=== PATIENT | male | born 1955 | race Caucasian/White ===

== ENCOUNTER 2018-09-11 14:25 | Inpatient (IN) | payer OTHER ==
[~2018-09-11] VITALS: Ht 167.6 cm; Wt 56.3 kg
[2018-09-11] MEDS ORDERED: SODIUM CHLORIDE 0.9% 1000ML 1,000 ML IV STA (14:43)
[2018-09-11] MEDS ORDERED: ACETAMINOPHEN 325 MG TAB PO ONE (15:15)
[2018-09-11 15:29] LABS: BASOPHILS # (AUTO) 0.1 (0.0-0.1); BASOPHILS % 0.7 % (0.0-1.0); EOSINOPHILS % 0.2 % (0.0-6.0); HEMATOCRIT 38.1 % (38.2-49.6); HEMOGLOBIN 13.4 g/dL (14.0-18.0); LYMPHOCYTES # (AUTO) 0.9 (1.0-3.2); LYMPHOCYTES % 10.8 % (18.0-39.1); MEAN CORPUSCULAR HGB CONC 35.2 g/dL (31-35); MEAN CORPUSCULAR VOLUME 96.7 fL (81-99); NEUTROPHILS # (AUTO) 6.6 (2.1-6.9); PLATELET COUNT 220 x10e3/uL (140-360); RED BLOOD COUNT 3.94 x10e6/uL (4.3-5.7); RED CELL DISTRIBUTION WIDTH 13.3 % (11.7-14.4)
[2018-09-11 15:36] LABS: INR 0.85; PROTHROMBIN TIME 12.1 seconds (11.9-14.5)
[2018-09-11 15:37] LABS: PARTIAL THROMBOPLASTIN TIME 30.9 seconds (23.8-35.5)
[2018-09-11 15:44] LABS: ALANINE AMINOTRANSFERASE 16 IU/L (0-55); ALBUMIN 4.2 g/dL (3.5-5.0); ALKALINE PHOSPHATASE 113 IU/L (40-150); BLOOD UREA NITROGEN 7 mg/dL (7-26); BUN/CREATININE RATIO 8 (6-25); CALCIUM 10.7 mg/dL (8.4-10.2); CARBON DIOXIDE 27 mmol/L (22-29); CHLORIDE 96 mmol/L (98-107); CREATINE KINASE 131 IU/L (30-200); CREATININE, SERUM 0.85 mg/dL (0.72-1.25); EST GLOMERULAR FILTRATION RATE > 60 ML/MIN (60-); GLUCOSE 184 mg/dL (74-118); SODIUM 141 mmol/L (136-145)
[2018-09-11 15:47] LABS: MAGNESIUM 1.1 MG/DL (1.3-2.1)
[2018-09-11] MEDS ORDERED: SODIUM CHLORIDE 0.9% 1000ML 2,000 ML ONE (15:51)
[2018-09-11 15:53] LABS: B-TYPE NATRIURETIC PEPTIDE2 66.8 pg/mL (0-100)
--- NOTE | 2018-09-11 15:55 | NUR ---
Patient emergency contact is Adrianna Carroll [phone]
--- NOTE | 2018-09-11 15:59 | Diagnostic Imaging Report ---
EXAMINATION: CHEST SINGLE (NOT PORTABLE) INDICATION: Shortness of breath. COMPARISON: None FINDINGS: TUBES and LINES: None. LUNGS: Lungs are well inflated. Lungs are clear. There is no evidence of pneumonia or pulmonary edema. PLEURA: No pleural effusion or pneumothorax. HEART AND MEDIASTINUM: The cardiomediastinal silhouette is unremarkable. BONES AND SOFT TISSUES: No acute osseous lesion. Soft tissues are unremarkable. UPPER ABDOMEN: No free air under the diaphragm. IMPRESSION: No acute radiographic abnormality. Signed by: Dr. Bárbara Russell MD on 09/11/2018 3:56 PM
[2018-09-11] MEDS ORDERED: SODIUM CHLORIDE 0.9% 1000ML 1,000 ML IV ONE ×2 (16:00)
[2018-09-11] MEDS ORDERED: NIFEDIPINE 10 MG CAP PO STA (16:16)
[2018-09-11 16:34] LABS: BILIRUBIN,URINE NEGATIVE (NEGATIVE); CLARITY,URINE SL CLOUDY (CLEAR); COLOR,URINE YELLOW (YELLOW); KETONES,URINE NEGATIVE (NEGATIVE); LEUKOCYTE ESTERASE ,URINE NEGATIVE (NEGATIVE); NITRITE,URINE NEGATIVE (NEGATIVE); PROTEIN,URINE DIPSTICK TRACE (NEGATIVE); URINE UROBILINOGEN 0.2 mg/dL (0.2 - 1)
[2018-09-11 16:41] LABS: RBC,URINE 0-5 /HPF (0-5)
[2018-09-11] MEDS ORDERED: LABETALOL HCL 20 MG/4 ML SYRINGE IV ONE (17:15)
[2018-09-11] MEDS ORDERED: LABETALOL HCL 20 ML ONE (17:21)
[2018-09-11] MEDS ORDERED: POTASSIUM CHLORIDE 10MEQ EA PO ONE (17:45)
--- NOTE | 2018-09-11 18:09 | Diagnostic Imaging Report ---
CT BRAIN WO HISTORY: Altered mental status COMPARISON: None. Technique: Noncontrast axial scans were obtained from skull base to the vertex. Coronal and sagittal reconstructions obtained from the axial data. One or more of the following dose reduction techniques were used: Automated exposure control, adjustment of the mA and/or kV according to patient size, and/or utilization of iterative reconstruction technique. DISCUSSION: Scalp/Skull: Unremarkable. Brain sulci: Mildly prominent. Ventricles: Compensatory dilatation. Extra-axial spaces: No masses or fluid collections. Carotid siphon calcifications are present. Parenchyma: Mild bilateral deep white matter hypodensity is likely chronic microvascular ischemic change. Otherwise, no masses, hemorrhage, or large vascular territory acute infarct. Dural sinuses: No abnormal densities. Sellar/Suprasellar region: Intact. Skull base: Intact. Incidental findings: None. IMPRESSION: 1. No acute intracranial abnormalities. 2. Mild supratentorial chronic microvascular ischemic change. Mild generalized cerebral volume loss. Signed by: Dr. Piyush Kelly M.D. on 09/11/2018 6:06 PM
[2018-09-11] MEDS ORDERED: SODIUM CHLORIDE 0.9% 50ML 50 ML ONE (18:12)
[2018-09-11] MEDS ORDERED: IOPAMIDOL 370 MG/ML 200 ML INFUS..BTL INJ ONE (18:13)
--- NOTE | 2018-09-11 18:34 | Diagnostic Imaging Report ---
EXAM: CT Chest WITH contrast (PE Protocol) INDICATION: Shortness of breath. Chest pain. COMPARISON: Chest radiograph 09/11/2018 TECHNIQUE: Chest was scanned utilizing a multidetector helical scanner from the lung apex through the level of the diaphragm after administration of IV contrast. Thin section reconstructions were obtained with special concentration on the pulmonary arteries. Coronal and sagittal reformations were obtained. Pulmonary embolism protocol was performed. IV CONTRAST: 100 mL of Omnipaque 350 COMPLICATIONS: None RADIATION DOSE: Total DLP: 1310.71 mGy*cm Estimated effective dose: (DLP x 0.014 x size factor) mSv CTDIvol has been reviewed. It is below the limits set by the Radiation Protocol Committee (RPC). Dose modulation, iterative reconstruction, and/or weight based adjustment of the mA/kV was utilized to reduce the radiation dose to as low as reasonably achievable. FINDINGS: LINES/ TUBES: None. LUNGS AND AIRWAYS: No filling defect is identified within the pulmonary arteries to the segmental level. The lungs are unremarkable. Airways are normal. PLEURA: The pleural spaces are clear. HEART AND MEDIASTINUM: The thyroid gland is normal. No mediastinal, hilar or axillary lymphadenopathy. The heart is normal in size. There is no pericardial effusion. . Main pulmonary artery measures 2.7 cm in diameter and the ascending aorta measures 3.7 cm. UPPER ABDOMEN: Unremarkable BONES: The visualized bony thorax is within normal limits. SOFT TISSUES: Unremarkable. IMPRESSION: No pulmonary emboli. Signed by: Dr. Justin Calderon M.D. on 09/11/2018 6:30 PM
[2018-09-11] MEDS ORDERED: MULTIVITAMINS- 12 INJECTION 10 ML, FOLIC ACID MDV 5 MG, THIAMINE HCL INJ 100 MG in SODI... IV ONE (19:30)
[2018-09-11] MEDS ORDERED: MAGNESIUM SULFATE 2GM/50ML 50 ML IV ONE (19:45)
--- NOTE | 2018-09-11 19:50 | NUR ---
patient is alert, on room air, making needs known, answering questions correctly, resp e/u, no shortness of breath, cap refill less than 3, urinal at bedside, bp is 140/89, o2 sat 100, rr 17, pulse 103, denies in pain, no distress noted
[2018-09-11] MEDS ORDERED: ONDANSETRON HCL INJ 2MG/ML 2ML 2 MG/ML VIAL IV PRN (20:00)
[2018-09-11] MEDS ORDERED: LABETALOL HCL 20 MG/4 ML SYRINGE IV PRN (20:15)
--- OUTSIDE RECORDS SUMMARY | 2018-09-11 20:16 | XMS REPORT ---
Author Author [facility] Address Unknown Phone Unavailable Care Team Providers Care Golf Course Mechanic Name Role Phone Keesha SANCHEZ Unavailable Unavailable Problems This patient has no known problems. Allergies, Adverse Reactions, Alerts This patient has no known allergies or adverse reactions. Medications This patient has no known medications. Results Test Description Test Time Test Comments Text Results Atomic Results Result Comments CT BRAIN WO 2018-09-11 18:02:00 [facility] [address] [id number] Patient Name: PEBBLES GILL MR #: [id number] : 1955 Age/Sex: 62/M Req #: [id number] Adm Physician: Ordered by: GOMEZ SANCHEZ MD Report #: [id number] Location: ER Room/Bed: Procedure: [id number] CT/CT BRAIN WO Exam Date: 09/11/18 Exam Time: 1730 REPORT STATUS: Signed CT BRAIN WO HISTORY: Altered mental status COMPARI SON: None. Technique: Noncontrast axial scans were obtained from skull base to the vertex. Coronal and sagittal reconstructions obtained from the axial data. One or more of the following dose reduction techniques were used: Automated exposure control, adjustment of the mA and/or kV according to patient size, and/or utilization of iterative reconstruction technique. DISCUSSION: Scalp/Skull: Unremarkable. Brain sulci: Mildly prominent. Ventricles: Compensatory dilatation. Extra-axial spaces: No masses or fluid collections. Carotid siphon calcifications are present. Parenchyma: Mild bilateral deep white matter hypodensity is likely chronic microvascular ischemic change. Otherwise, no masses, hemorrhage, or large vascular territory acute infarct. Dural sinuses: No abnormal densities. Sellar/Suprasellar region: Intact. Skull base: Intact. Incidental findings: None. IMPRESSION: 1. No acute intracranial abnormalities. 2. Mild randall pratentorial chronic microvascular ischemic change. Mild generalized cerebral volume loss. Signed by: Dr. Piyush Kelly M.D. on 09/11/2018 6:06 PM Dictated By: PIYUSH KELLY MD 05 Transcribed By: JEAN on 09/11/181805 COPY TO: GOMEZ SANCHEZ MD CT CHEST W 2018-09-11 18:00:00 [address] [address] Patient Name: PEBBLES GILL MR #: [id number] : 1955 Age/Sex: 62/M Req #: [id number] Adm Physician: Ordered by: GOMEZ SANCHEZ MD Report #: [id number] Location: ER Room/Bed: Procedure: [id number] CT/CT CHEST W Exam Date: 09/11/18 Exam Time: 1730 REPORT STATUS: Signed EXAM: CT Chest WITH contrast (PE Protocol) INDICATION: Shortness of breath. Chest pain. COMPARISON: Chest radiograph 09/11/2018 TECHNIQUE: Chest was scanned utilizing a multidetector helical scanner from the lung apex through the level of the diaphragm after administration of IV contrast. Thin section reconstructions were obtained with special concentration on the pulmonary arteries. Coronal and sagittal reformations were obtained. Pulmonary embolism protocol was performed. IV CONTRAST: 100 mL of Omnipaque 350 COMPLICATIONS: None RADIATION DOSE: Total DLP: 1310.71 mGy*cm Estimated effective dose: (DLP x 0.014 x size factor) mSv CTDIvol has been reviewed. It is below the limits set by the Radiation Protocol Committee (RPC). Dose modulation, iterative reconstruction, and/or weight based adjustment of the mA/kV was utilized to reduce the radiation dose to as low as reasonably achievable. FINDINGS: LINES/ TUBES: None. LUNGS AND AIRWAYS: No filling defect is identified within the pulmonary arteries to the segmental level. The lungs are unremarkable. Airways are normal. PLEURA: The pleural spaces are clear. HEART AND MEDIASTINUM: The thyroid gland is normal. No mediastinal, hilar or axillary lymphadenopathy. The heart is normal in size. There is no pericardial effusion. . Main pulmonary artery measures 2.7 cm in diameter and the ascending aorta measures 3.7 cm. UPPER ABDOMEN: Unremarkable BONES: The visualized bony thorax is within normal limits. SOFT TISSUES: Unremarkable. IMPRESSION: No pulmonary emboli. Signed by: Dr. Justin Calderon M.D. on 09/11/2018 6:30 PM Dictated By: JUSTIN CALDERON MD, MD 29 Transcribed By: JEAN on 09/11/181829 COPY TO: GOMEZ SANCHEZ MD CHEST SINGLE (NOT PORTABLE) 2018-09-11 15:53:00 [address] [address] Patient Name: PEBBLES GILL MR #: [id number] : 1955 Age/Sex: 62/M Req #: [id number] Adm Physician: Ordered by: GOMEZ SANCHEZ MD Report #: [id number] Location: ER Room/Bed: Procedure: [id number] DX/CHEST SINGLE (NOT PORTABLE) Exam Date: 09/11/18 Exam Time: 1505 REPORT STATUS: Signed EXAMINATION: CHEST SINGLE (NOT PORTABLE) INDICATION: Shortness of breath. COMPARISON: None FINDINGS: TUBES and LINES: None. LUNGS: Lungs are well inflated. Lungs are clear. There is no evidence of pneumonia or pulmonary edema. PLEURA: No pleural effusion or pneumothorax. HEART AND MEDIASTINUM: The cardiomediastinal silhouette is unremarkable. BONES AND SOFT TISSUES: No acute osseous lesion. Soft tissues are unremarkable. UPPER ABDOMEN: No free air under the diaphragm. IMPRESSION: No acute radiographic abnormality. Signed by: Dr. Jaswinder Mcclendon MD on 09/11/2018 3:56 PM Dictated By: JASWINDER MCCLENDON MD [id number] Transcribed By: JEAN on 09/11/18 9832 COPY TO: GOMEZ SANCHEZ MD
[2018-09-11 21:32] VITALS: BP 160/92
[2018-09-11 21:45] VITALS: BP 160/92
[2018-09-11] MEDS: LABETALOL HCL 100 MG TAB PO SCH (22:00)
[2018-09-11] MEDS: CHLORDIAZEPOXIDE HCL 25 MG CAP PO SCH (23:05)
[2018-09-11 23:38] VITALS: BP 160/92
[2018-09-12] VITALS (7 sets, daily range): BP systolic 128–146; BP diastolic 79–96
[2018-09-12] MEDS: CHLORDIAZEPOXIDE HCL 25 MG CAP PO SCH ×4 (05:07→23:19)
[2018-09-12 06:23] LABS: BASOPHILS # (AUTO) 0.1 (0.0-0.1); BASOPHILS % 0.9 % (0.0-1.0); EOSINOPHILS # (AUTO) 0.1 (0.0-0.4); EOSINOPHILS % 0.9 % (0.0-6.0); HEMATOCRIT 35.8 % (38.2-49.6); HEMOGLOBIN 12.5 g/dL (14.0-18.0); LYMPHOCYTES # (AUTO) 0.9 (1.0-3.2); LYMPHOCYTES % 12.8 % (18.0-39.1); MEAN CORPUSCULAR HEMOGLOBIN 34.3 pg (28-32); MEAN CORPUSCULAR HGB CONC 34.9 g/dL (31-35); MEAN CORPUSCULAR VOLUME 98.4 fL (81-99); MONOCYTES # (AUTO) 1.1 (0.2-0.8); MONOCYTES % 16.7 % (4.4-11.3); NEUTROPHILS # (AUTO) 4.5 (2.1-6.9); NEUTROPHILS % 68.2 % (38.7-80.0); PLATELET COUNT 194 x10e3/uL (140-360); RED BLOOD COUNT 3.64 x10e6/uL (4.3-5.7); RED CELL DISTRIBUTION WIDTH 13.7 % (11.7-14.4)
[2018-09-12 06:36] LABS: ANION GAP 13.1 mmol/L (8-16); CALCIUM 8.6 mg/dL (8.4-10.2); CARBON DIOXIDE 28 mmol/L (22-29); CHLORIDE 100 mmol/L (98-107); CREATININE, SERUM 0.68 mg/dL (0.72-1.25); EST GLOMERULAR FILTRATION RATE > 60 ML/MIN (60-); GLUCOSE 92 mg/dL (74-118); MAGNESIUM 1.7 MG/DL (1.3-2.1); POTASSIUM 3.1 mmol/L (3.5-5.1); SODIUM 138 mmol/L (136-145)
[2018-09-12 07:04] LABS: BLOOD UREA NITROGEN < 5 mg/dL (7-26)
[2018-09-12 07:11] LABS: BUN/CREATININE RATIO 7 (6-25)
[2018-09-12 07:37] LABS: CREATINE KINASE MB 3.2 ng/mL (0-5.0)
[2018-09-12] MEDS: POTASSIUM CHLORIDE 20 MEQ TAB CR PO SCH (08:05)
[2018-09-12] MEDS: LABETALOL HCL 100 MG TAB PO SCH ×2 (08:06→21:36)
[2018-09-12] MEDS ORDERED: THIAMINE HCL INJ 100 MG/ML 2ML VIAL IV SCH (09:00)
[2018-09-12] MEDS ORDERED: POTASSIUM CHLORIDE 20 MEQ TAB CR PO NR (10:00)
[2018-09-12] MEDS ORDERED: HYDRALAZINE HCL 20 MG/ML VIAL IV PRN (10:00)
--- NOTE | 2018-09-12 13:43 | NUR ---
CASE MANAGEMENT ASSESSMENT Television Journalist to bedside to discuss plan of care with patient/family. CM/SW role and care transitions discussed. Anticipated discharge plan discussed along with duration of care. CM/SW discussed patients right to make decisions in care. CM/SW work hours given. Patient lives: alone Admit/Transfer: thru ED Hospital/ER visits since last admit: 0 POA/Emergency contact: friend Adrianna Carroll [phone] Current/Previous Home Health: none PCP/Follow-up Care: Dr. Radha Marx is PCP, Cm advised pt to follow up with his MD within 5 days of discharge. Pt states he will call and schedule an appointment Current/Previous DME: has walker at home but does not use. Medications (referring to index hospitalization or the first time you were in the hospital) a. Were changes made in your medications when you were in the hospital on [date of index hospitalization]? n/a b. Did you understand the changes? n/a c. Were you able to obtain your new medications right away? n/a d. Were you able to take your medications like the doctor wanted you to? n/a e. Did the hospital give you an accurate, easy to understand list of medications when you left? n/a Scale of 1-10 how comfortable does patient feel with disease management in outpatient settin Other Services: none Employment Status: retired Areas of Concerns: ataxia, ? ETOH Referral Needs: none Education Needs: medical management IMM/BLANCO given and signed (if applicable): n/a Goal for discharge: home; pt states his friend Adrianna will check on him and stay with him a couple of hrs daily after he discharges CM/SW left business card at the bedside with contact information. Name and number was also written on the patients whiteboard. Patient verbalized understanding of discussion. CM will follow-up with ongoing discharge and transition of care needs.
[2018-09-12] MEDS ORDERED: ONDANSETRON HCL 4 MG ORAL DISINTEGRATING TAB PO PRN (16:00)
[2018-09-12] MEDS: FAMOTIDINE 20 MG TAB PO SCH (17:00)
--- NOTE | 2018-09-12 18:55 | NUR ---
Report given to oncoming nurse of patient's status. No s/s of acute distress noted. Call light within reach.
--- NOTE | 2018-09-12 19:50 | NUR ---
VERIFIED THAT PATIENT'S PCP IS DR MOON. SWITCH TO DR ALEXANDER NOW. NOTIFIED GLADIS LORENZO
[2018-09-12 23:09] LABS: CREATINE KINASE MB 2.8 ng/mL (0-5.0)
[2018-09-12] MEDS: LORAZEPAM INJ 2 MG/ML VIAL IV PRN (23:20)
[2018-09-13] VITALS (11 sets, daily range): BP systolic 124–159; BP diastolic 72–98
--- NOTE | 2018-09-13 00:30 | NUR ---
PATIENT IS AGITATED AND HALLUCINATED, PAGE DR ALEXANDER. NEW ORDER FOR PATI CABEZAS
[2018-09-13] MEDS: LORAZEPAM INJ 2 MG/ML VIAL IV PRN ×2 (05:22→21:03)
[2018-09-13] MEDS: CHLORDIAZEPOXIDE HCL 25 MG CAP PO SCH ×3 (05:24→18:06)
[2018-09-13 05:36] LABS: BASOPHILS # (AUTO) 0.1 (0.0-0.1); BASOPHILS % 0.6 % (0.0-1.0); EOSINOPHILS # (AUTO) 0.1 (0.0-0.4); EOSINOPHILS % 1.4 % (0.0-6.0); HEMATOCRIT 37.2 % (38.2-49.6); LYMPHOCYTES # (AUTO) 1.2 (1.0-3.2); MEAN CORPUSCULAR HEMOGLOBIN 34.2 pg (28-32); MEAN CORPUSCULAR HGB CONC 34.1 g/dL (31-35); MEAN CORPUSCULAR VOLUME 100.3 fL (81-99); MONOCYTES # (AUTO) 1.1 (0.2-0.8); MONOCYTES % 11.4 % (4.4-11.3); NEUTROPHILS # (AUTO) 7.4 (2.1-6.9); NEUTROPHILS % 74.1 % (38.7-80.0); PLATELET COUNT 188 x10e3/uL (140-360); RED BLOOD COUNT 3.71 x10e6/uL (4.3-5.7); RED CELL DISTRIBUTION WIDTH 13.4 % (11.7-14.4)
[2018-09-13 05:59] LABS: HEMOGLOBIN 12.7 g/dL (14.0-18.0)
[2018-09-13 06:01] LABS: ANION GAP 15.8 mmol/L (8-16); BLOOD UREA NITROGEN 11 mg/dL (7-26); BUN/CREATININE RATIO 14 (6-25); CALCIUM 9.2 mg/dL (8.4-10.2); CARBON DIOXIDE 20 mmol/L (22-29); CHLORIDE 105 mmol/L (98-107); CREATININE, SERUM 0.78 mg/dL (0.72-1.25); EST GLOMERULAR FILTRATION RATE > 60 ML/MIN (60-); GLUCOSE 81 mg/dL (74-118); MAGNESIUM 1.6 MG/DL (1.3-2.1); POTASSIUM 3.8 mmol/L (3.5-5.1); SODIUM 137 mmol/L (136-145)
--- NOTE | 2018-09-13 07:15 | NUR ---
BEDSIDE REPORT FROM NIGHT RN. SITTER AT BEDSIDE. PT VERY AGITATED BUT ABLE TO REORIENT AND CALMED.
[2018-09-13] MEDS: MULTIVITAMINS- 12 INJECTION 10 ML, FOLIC ACID MDV 5 MG, THIAMINE HCL INJ 100 MG in SODI... IV SCH ×2 (08:00→19:00)
[2018-09-13] MEDS: FAMOTIDINE 20 MG TAB PO SCH ×2 (08:34→18:06)
[2018-09-13] MEDS: POTASSIUM CHLORIDE 20 MEQ TAB CR PO SCH (08:34)
[2018-09-13] MEDS: LABETALOL HCL 100 MG TAB PO SCH ×2 (08:35→21:03)
--- NOTE | 2018-09-13 19:22 | Consultation ---
DATE OF CONSULTATION: 09/13/2018 HISTORY OF PRESENT ILLNESS: Mr. Street is a 62-year-old right-hand dominant man with past medical history significant for a prior history of hypertension and alcohol abuse, admitted to [facility] on September 11, 2018, with hypertension, probable alcohol withdrawal, hypokalemia, and hypomagnesemia. Neurology Service is consulted regarding tremor. According to the patient, on August 11, 2018, a neighbor came to his home to look in on the patient. Mr. Street was noted to be pale and shaking. The neighbor took his blood pressure and found his systolic blood pressure to be in the 180s mmHg. Mr. Street's neighbor encouraged him to notify emergency medical services, so he could be taken to an emergency center for further evaluation. Mr. Street refused. He laid down to take a nap. When he awoke, the patient's systolic blood pressure remained elevated in the 180s mmHg. At this time, he agreed to notify emergency medical services regarding his symptoms. Mr. Street was transported to the emergency center at [facility] via ambulance for further evaluation of his symptoms. [facility] the [facility]'s temperature was 99.7, his blood pressure was 169/96 mmHg, and his heart rate was 135 beats per minute. The documentation of the patient's general physical and neurological examinations is unavailable for review at this time. While in the emergency center, a CT of the brain without contrast was performed. This study did not reveal recent large territorial ischemia or hemorrhage. Mr. Street was admitted to [facility] under observation status for further evaluation and treatment of his symptoms. Regarding the tremor for which Neurology was consulted, Mr. Street reports his whole body began shaking approximately 2 to 3 days ago. His last alcoholic beverage was the day prior to the onset of shaking. According to the patient, nothing improves the shaking and nothing worsens the shaking. Mr. Street does not report experiencing similar symptoms previously. However, he does report having friends/acquaintances who had shaking when they stop drinking alcohol. The patient does not report family history of tremor or Parkinson disease. REVIEW OF SYSTEMS: Unable to obtain secondary to the patient being encephalopathic. PAST MEDICAL HISTORY: Prior history of hypertension, alcohol abuse. PAST SURGICAL HISTORY: Tonsillectomy. PAST HOSPITALIZATIONS: Surgeries/procedures as listed. FAMILY MEDICAL HISTORY: Unable to obtain secondary to the patient being encephalopathic. SOCIAL HISTORY: Mr. Street is single. He is retired. Mr. Street does not report current or prior tobacco or recreational drug use. Mr. Street reports drinking three beers per week. However, review of documentation in his paper chart as well as the electronic medical records reveals a neighbor informed the Primary Service, Mr. Street is a "drinker." However, no one is certain as to how much alcohol he consumes in a day. HOME MEDICATIONS: None. HOSPITAL MEDICATIONS: Tylenol, Librium, Pepcid, hydralazine, labetalol, Ativan, multivitamin with folic acid and thiamine, Zofran, and potassium chloride. ALLERGIES: NO KNOWN DRUG ALLERGIES. NO KNOWN FOOD ALLERGIES. NO KNOWN ALLERGIES TO LATEX. NO KNOWN ALLERGIES TO IODINE OR OTHER CONTRAST MATERIALS. PHYSICAL EXAMINATION: VITAL SIGNS: Height 66 inches, weight 122.5 pounds, BMI 19.8 kg/m2, blood pressure 159/98 mmHg, pulse 88 beats per minute, respiratory rate 20 breaths per minute, and oxygen saturation 98% on room air. GENERAL: The patient is awake and alert, does not appear distressed. Tremulous. HEENT: Normocephalic, atraumatic. Pupils are equal, round, and sluggishly reactive to light. Moist mucous membranes. NECK: Supple. No appreciable thyromegaly. No appreciable carotid bruits. CARDIOVASCULAR: S1, S2, tachycardic, regular rhythm. No murmurs, rubs, or gallops. RESPIRATORY: Clear to auscultation bilaterally. No wheezes, rhonchi, or rales. EXTREMITIES: The skin is warm and dry. No clubbing, cyanosis, or edema. The posterior tibial and dorsalis pedis pulses are 1+ and symmetric. SKIN: No rashes or lesions. NEUROLOGIC: MEMORY/ATTENTION: The patient is awake and alert, oriented to person, place (city, state), time (year), and minimally to situation. CRANIAL NERVES: Cranial nerve I - not tested. Cranial nerve II, III, IV, and - Pupils are equal and round, react sluggishly to light (from 4 mm to 6 mm). Extraocular movements intact. No nystagmus. Cranial nerve V - Sensation to light touch is intact in the bilateral V1 through V3 distributions. Strength of the temporalis and masseter muscles is within normal limits. Cranial nerve VII - The face is symmetric as are all facial movements. Strength is within normal limits. Cranial nerve VIII - Hearing is intact to finger rub bilaterally. Cranial nerve IX, X - The soft palate elevates equally and symmetrically. Cranial nerve XI - normal strength of the bilateral sternocleidomastoid and trapezius muscles. Cranial nerve XII - The tongue protrudes in midline and moves symmetrically from [id number]. STRENGTH: Bulk is diminished throughout. Strength is 4 to 4+/5 in the bilateral deltoids, biceps, triceps, wrist flexors and extensors, finger flexors and extensors, and intrinsic hand muscles. Mr. Street will not elevate either leg to command. Per his sitter, the patient has been elevating his leg over the rail. Therefore, strength in the legs must be at least 3/5. Tone is normal in all four extremities. DTRs: Deep tendon reflexes are 1+ and symmetric at the triceps, biceps, brachioradialis, and patellas. Deep tendon reflexes are absent and symmetric at the Achilles. Plantar responses are flexor bilaterally. SENSATION: Sensation is intact to light touch in both arms and both legs. CEREBELLAR: Unable to assess secondary to the patient being encephalopathic. GAIT: Deferred. The patient is at high risk for falls. SPEECH: Spontaneous speech is mildly dysarthric without aphasia. Repetition is intact. INVOLUNTARY MOVEMENTS: Moderate frequency, moderate amplitude tremor affecting the whole body. Positive asterixis. PRONATOR DRIFT: As per motor exam. LABORATORY DATA: The most recent basic metabolic panel is significant for a mildly diminished carbon dioxide of 20. A liver function panel drawn on September 11, 2018, was significant for an elevated AST of 47, mildly elevated protein of 8.5, and mildly elevated globulin of 4.4. TSH 2.350. Lactic acid 58.8, 26.0. B-natriuretic peptide 66.8, 82.4. Cardiac enzymes are negative x3. CBC with differential and platelets reveals white blood cell count of 10.01 with 74.1% neutrophils, 12.0% lymphocytes, 11.4% monocytes, 1.4% eosinophils, and 0.6% basophils. The patient has a macrocytic anemia with a hemoglobin and hematocrit of 12.7 and 37.2, respectively. The platelet count is 188. A coagulation profile is unremarkable. Quantitative D-dimer is 1.51, which is elevated. Urinalysis collected on September 11, 2018, revealed slightly cloudy urine with trace protein, 1+ glucose, and trace blood. Blood cultures collected on September 11, 2018, revealed no growth after 24 hours. Urine culture collected on September 11, 2018, reveals no growth at 36 to 48 hours. DIAGNOSTIC STUDIES: Electrocardiogram on 09/11/2018: Sinus tachycardia at 124 beats per minute. Left atrial enlargement. Chest x-ray on 09/11/2018: No acute radiographic abnormality. CT of the brain without contrast on 09/11/2018: On my review, there is no evidence of recent large territory ischemia, hemorrhage, mass, or mass effect. There is diffuse cerebral atrophy with compensatory dilatation of the ventricles, more than expected for the patient's age. Their findings compatible with [id number] chronic small-vessel ischemic disease. CT of the chest on 09/11/2018: No pulmonary emboli. ASSESSMENT AND PLAN: Mr. Street is a 62-year-old right-hand dominant man with past medical history significant for a prior history of hypertension and alcoholism, admitted to [facility] on September 11, 2018, with hypertension and generalized tremulousness. The patient has undergone a thorough neurological examination with findings detailed above. His laboratory data and other diagnostic studies have been reviewed and are documented above. In my opinion, the patient's tremulousness and other symptoms are secondary to alcohol withdrawal. Continue with current treatments as per the Primary Service. Mr. Street was strongly encouraged to abstain from alcohol in the future. Thank you for this consultation. There are no other recommendations from the Neurology Service at this time. Please call again with any questions or concerns. TIME SPENT: 50 minutes. Lavern Pruett MD CP/JHONY /[id number] SAMMY
[2018-09-14] MEDS: CHLORDIAZEPOXIDE HCL 25 MG CAP PO SCH ×4 (00:58→18:00)
[2018-09-14] MEDS: MULTIVITAMINS- 12 INJECTION 10 ML, FOLIC ACID MDV 5 MG, THIAMINE HCL INJ 100 MG in SODI... IV SCH ×2 (05:05→14:07)
--- NOTE | 2018-09-14 07:00 | NUR ---
BEDSIDE REPORT FROM NIGHT RN. PT DENIES NEEDS AT THIS TIME. SITTER AT BEDSIDE.
[2018-09-14 08:17] VITALS: BP 133/84
[2018-09-14] MEDS: FAMOTIDINE 20 MG TAB PO SCH ×2 (08:42→18:00)
[2018-09-14] MEDS: LABETALOL HCL 100 MG TAB PO SCH ×2 (08:42→20:59)
[2018-09-14] MEDS: POTASSIUM CHLORIDE 20 MEQ TAB CR PO SCH (08:43)
[2018-09-14 09:00] VITALS: BP 133/84
[2018-09-14 11:54] VITALS: BP 104/83
[2018-09-14 17:01] VITALS: BP 109/82
[2018-09-14 20:42] VITALS: BP 127/82
[2018-09-15] VITALS (7 sets, daily range): BP systolic 121–145; BP diastolic 76–93
[2018-09-15] MEDS: CHLORDIAZEPOXIDE HCL 25 MG CAP PO SCH ×5 (00:18→23:56)
[2018-09-15] MEDS: MULTIVITAMINS- 12 INJECTION 10 ML, FOLIC ACID MDV 5 MG, THIAMINE HCL INJ 100 MG in SODI... IV SCH ×2 (02:17→09:49)
[2018-09-15 05:09] LABS: BASOPHILS % 0.7 % (0.0-1.0); EOSINOPHILS # (AUTO) 0.2 (0.0-0.4); EOSINOPHILS % 4.1 % (0.0-6.0); HEMATOCRIT 33.2 % (38.2-49.6); HEMOGLOBIN 11.4 g/dL (14.0-18.0); LYMPHOCYTES # (AUTO) 0.9 (1.0-3.2); LYMPHOCYTES % 14.6 % (18.0-39.1); MEAN CORPUSCULAR HEMOGLOBIN 35.2 pg (28-32); MEAN CORPUSCULAR HGB CONC 34.3 g/dL (31-35); MEAN CORPUSCULAR VOLUME 102.5 fL (81-99); MONOCYTES # (AUTO) 0.6 (0.2-0.8); NEUTROPHILS % 69.4 % (38.7-80.0); PLATELET COUNT 163 x10e3/uL (140-360); RED BLOOD COUNT 3.24 x10e6/uL (4.3-5.7); RED CELL DISTRIBUTION WIDTH 13.7 % (11.7-14.4)
[2018-09-15 06:01] LABS: ALANINE AMINOTRANSFERASE 16 IU/L (0-55); ALBUMIN 3.1 g/dL (3.5-5.0); ALKALINE PHOSPHATASE 63 IU/L (40-150); ANION GAP 10.1 mmol/L (8-16); BLOOD UREA NITROGEN 6 mg/dL (7-26); BUN/CREATININE RATIO 9 (6-25); CALCIUM 8.5 mg/dL (8.4-10.2); CARBON DIOXIDE 20 mmol/L (22-29); CHLORIDE 115 mmol/L (98-107); CREATININE, SERUM 0.68 mg/dL (0.72-1.25); EST GLOMERULAR FILTRATION RATE > 60 ML/MIN (60-); GLUCOSE 83 mg/dL (74-118); MAGNESIUM 1.7 MG/DL (1.3-2.1); PHOSPHORUS 2.4 MG/DL (2.3-4.7); POTASSIUM 3.1 mmol/L (3.5-5.1); SODIUM 142 mmol/L (136-145)
--- NOTE | 2018-09-15 07:00 | NUR ---
BEDSIDE REPORT FROM NIGHT RN. PT DENIES NEEDS AT THIS TIME.
[2018-09-15] MEDS: FAMOTIDINE 20 MG TAB PO SCH ×2 (08:24→18:22)
[2018-09-15] MEDS: POTASSIUM CHLORIDE 20 MEQ TAB CR PO SCH (08:25)
[2018-09-15] MEDS: LABETALOL HCL 100 MG TAB PO SCH ×2 (08:27→20:24)
--- NOTE | 2018-09-15 14:08 | NUR ---
PT FURNISHED A WALKER AND ASSISTED TO BATHROOM. PT STILL VERY UNSTEADY BUT STRONGER AND CAN SUPPORT OWN WEIGHT. PT EDUCATED TO USE CALL LIGHT FOR STAND BY ASSIST AND BED ALARM IS SET. PT HAS BEEN USING THE CALL LIGHT.
[2018-09-15] MEDS ORDERED: POTASSIUM CHLORIDE 10MEQ EA PO NR ×2 (14:30→16:30)
--- NOTE | 2018-09-15 16:05 | NUR ---
Visit made by the Spiritual Care Department Pastoral Visitor, Valentin Leon. PV provided pastoral presence, prayer, hospitality, communion, and supportive listening. Pastoral Visitor informed pt/family of the scope of [employer] and availability. ALBERTO SCHAFER Restorative Rehab Aide Spiritual Care Department O: [phone] Pager: [phone] ([phone] calling from)
--- NOTE | 2018-09-15 23:53 | NUR ---
new 20G IV started to left forearm, 18G to right AC removed
[2018-09-16] VITALS (7 sets, daily range): BP systolic 144–160; BP diastolic 82–106
[2018-09-16] MEDS: CHLORDIAZEPOXIDE HCL 25 MG CAP PO SCH ×5 (05:19→23:45)
[2018-09-16 05:52] LABS: BASOPHILS % 0.6 % (0.0-1.0); EOSINOPHILS # (AUTO) 0.3 (0.0-0.4); EOSINOPHILS % 4.1 % (0.0-6.0); HEMATOCRIT 33.8 % (38.2-49.6); HEMOGLOBIN 11.2 g/dL (14.0-18.0); LYMPHOCYTES % 15.1 % (18.0-39.1); MEAN CORPUSCULAR HEMOGLOBIN 34.4 pg (28-32); MEAN CORPUSCULAR HGB CONC 33.1 g/dL (31-35); MEAN CORPUSCULAR VOLUME 103.7 fL (81-99); MONOCYTES # (AUTO) 0.7 (0.2-0.8); MONOCYTES % 11.5 % (4.4-11.3); NEUTROPHILS # (AUTO) 4.4 (2.1-6.9); NEUTROPHILS % 68.4 % (38.7-80.0); PLATELET COUNT 168 x10e3/uL (140-360); RED BLOOD COUNT 3.26 x10e6/uL (4.3-5.7)
[2018-09-16 06:31] LABS: ALANINE AMINOTRANSFERASE 17 IU/L (0-55); ALBUMIN 3.2 g/dL (3.5-5.0); ALKALINE PHOSPHATASE 69 IU/L (40-150); ANION GAP 9.7 mmol/L (8-16); BLOOD UREA NITROGEN < 5 mg/dL (7-26); CALCIUM 8.9 mg/dL (8.4-10.2); CARBON DIOXIDE 21 mmol/L (22-29); CHLORIDE 116 mmol/L (98-107); CREATININE, SERUM 0.71 mg/dL (0.72-1.25); EST GLOMERULAR FILTRATION RATE > 60 ML/MIN (60-); GLUCOSE 83 mg/dL (74-118); POTASSIUM 3.7 mmol/L (3.5-5.1); SODIUM 143 mmol/L (136-145)
[2018-09-16 07:30] LABS: BUN/CREATININE RATIO 7 (6-25)
[2018-09-16] MEDS: FAMOTIDINE 20 MG TAB PO SCH ×2 (08:58→16:57)
[2018-09-16] MEDS: LABETALOL HCL 100 MG TAB PO SCH ×2 (08:59→21:25)
[2018-09-16] MEDS: POTASSIUM CHLORIDE 20 MEQ TAB CR PO SCH (09:02)
[2018-09-17] VITALS (8 sets, daily range): BP systolic 131–163; BP diastolic 83–106
[2018-09-17] MEDS: CHLORDIAZEPOXIDE HCL 25 MG CAP PO SCH ×3 (05:02→20:42)
[2018-09-17] MEDS: LABETALOL HCL 5 MG/ML 20ML VIAL IV PRN (05:15)
[2018-09-17] MEDS: FAMOTIDINE 20 MG TAB PO SCH ×2 (08:20→17:30)
[2018-09-17] MEDS: POTASSIUM CHLORIDE 20 MEQ TAB CR PO SCH (08:21)
[2018-09-17] MEDS: LABETALOL HCL 100 MG TAB PO SCH ×2 (08:21→20:41)
--- NOTE | 2018-09-17 16:17 | NUR ---
SPOKE WITH PT, HE STATES HE REALLY DOES NOT WANT TO GO TO A SNF, HE STATES THE DOCTOR DID NOT TELL HIM THAT IS WHAT HE NEEDS, HE WOULD LIKE FOR THE DR TO COME TELL HIM HE NEEDS THE PLACEMENT, HE STATES HE USED TO WORK AT THE [employer] AND HE KNOWS WHAT IT IS BUT JUST WANTS TO GO HOME.
[2018-09-17] MEDS ORDERED: HALOPERIDOL LACTATE 5 MG/ML VIAL IM PRN (16:30)
[2018-09-18] VITALS (10 sets, daily range): BP systolic 117–159; BP diastolic 76–104
--- NOTE | 2018-09-18 | Consultation ---
DATE OF CONSULTATION: 09/17/2018 Psychiatric Consultation. REASON FOR CONSULTATION: To evaluate the patient's psychosis and capacity. HISTORY OF PRESENT ILLNESS: The patient is a 62-year-old male admitted to the hospital for ataxia and for suspected ethanol withdrawal, hypokalemia, hypomagnesemia. Psychiatric consultation is called to evaluate the patient's psychosis and capacity regarding placement. As per medical record, the patient has a history of hypertension and alcohol abuse. The patient was found to have an elevated blood pressure and heart rate in the ER. CT scan was done and was found to be unremarkable for any acute finding. Neurology is on board. The patient was found to be tremulous. Librium was added due to his history of alcohol abuse and also tremors. Nursing staff reported that the patient lives alone at home. He is a . He has a neighbor who helps some at times. It was reported that there were lot empty bottles of hard liquor at home. They will check up his house as well, it appears that he is not able to care for himself at home. He has unsteady gait while hospitalized and recommendation has been made to have him be sent to rehab once discharged. Upon evaluation today, the patient is found to be in the room. He is alert, awake, and oriented to self, place, and year. He states that he has a brother and sister, but does not live close to him. He denies any depression or anxiety at this time. Denies any hopelessness or helplessness. Denies any hallucination. He denies any suicidal thoughts. He denies any poor sleep or appetite. He appears to be suspicious and he is not open to answering some questions. Case management is also in the room. The patient is asked if he would like to go to rehab. The patient claims he does not want to do so, he wants to go home, but he is unable to state the reason why he does not want to go to rehab other than did tell that it is a personal question. The patient is evasive regarding the reason why he is refusing rehab. 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 The patient claims he can go home and take care of himself. He will get some help from his neighbor. He thinks that he can walk around at home and cook for himself. He claims he does not drive and that he will take a taxi to do his errands. PAST PSYCHIATRIC HISTORY: The patient denies past psychiatric history. He denies past suicide attempts. He claims he drinks very little. He claims he drinks about three beers every two weeks or so. He denies any liquor consumption, although as per report there were bottles of empty liquor at his house. Drug use, the patient denies. FAMILY HISTORY: The patient refused to answer. SOCIAL HISTORY: The patient lives alone. MENTAL STATUS EXAM: The patient is an elderly male. He is alert, awake, and oriented to self, place, and time. Mood is irritable. Affect is congruent with mood. Psychomotor state is passive and calm. No tremors seen. Thought processes is concrete. He is somewhat suspicious and evasive. Denies any suicidal or homicidal ideation. Denies any hallucination. Insight and judgment are limited. Memory appears to be grossly intact. CURRENT MEDICATIONS: 1. Labetalol. 2. Potassium. 3. Famotidine. 4. Ativan 1 mg IV q.6 hours p.r.n. agitation. 5. Librium 25 mg p.o. q.6 hours schedule. 6. Ondansetron. 7. Hydralazine. 8. Acetaminophen. LABORATORY DATA: Current labs: WBC 6.37, RBC 3.26, hemoglobin 11.2, hematocrit 33.8, platelets were 168. ASSESSMENT: 1. Adjustment disorder with mixed mood. 2. Alcohol abuse. 3. Rule out alcohol withdrawal. PLAN: 1. Reduce Librium from 25 mg p.o. q.6 hour to 25 mg p.o. q.8 hours on schedule. 2. Discontinue Ativan p.r.n. IV as pertinent risk and the patient gets agitated when he gets this. 3. Add Haldol 2 mg IM q.6 hours p.r.n. 4. Supportive therapy. 5. Monitor for mood. 6. Discussed with case management and nursing staff. Thank you for this consultation. Dictated by Monica Parker PA-C Paulina Gaston MD QTV/MODL /[id number]
[2018-09-18] MEDS: LABETALOL HCL 5 MG/ML 20ML VIAL IV PRN (00:34)
[2018-09-18] MEDS: CHLORDIAZEPOXIDE HCL 25 MG CAP PO SCH ×3 (06:04→21:33)
--- NOTE | 2018-09-18 07:00 | NUR ---
BEDSIDE SHIFT REPORT FROM NIGHT RN. PT DENIES NEEDS AT THIS TIME.
[2018-09-18] MEDS: FAMOTIDINE 20 MG TAB PO SCH ×2 (08:46→16:50)
[2018-09-18] MEDS: POTASSIUM CHLORIDE 20 MEQ TAB CR PO SCH (08:47)
[2018-09-18] MEDS: LABETALOL HCL 100 MG TAB PO SCH ×2 (08:47→21:33)
--- NOTE | 2018-09-18 13:32 | NUR ---
NOTIFIED BEDSIDE RN MIGUELANGEL AND FERDINAND THAT PATIENT REFUSED RETIREMENT FACILITY AND NOW WALKING 130 FT WITH ROLLING WALKER. ACCORDING TO PATIENT, PATIENT HAS ROLLING WALKER AT HOME FOR MOBILITY. PATIENT TO HAVE ROLLING WALKER BROUGHT TO [facility] PRIOR TO DISCHARGE. PATIENT DISCHARGING HOME WITH NO NEEDS. [facility]NCOURAG[facility] TO GET DISCHARGE ORDERS OR ANTICIPATED DISCHARGE DATE.
--- NOTE | 2018-09-18 17:46 | Progress Note ---
DATE: 09/18/2018 Psychiatric Progress Note SUBJECTIVE: The patient evaluated and events noted. The patient was seen by Dr. Gaston today. The patient is alert, awake, and oriented to situation. He knows where he is, the current year and the location. He is answering questions appropriately. He denies depression. Denies any anxiety. He denies any hallucination or suicidal ideation. He denies any side effects of medication. He denies any problem with sleep or appetite. As per the case management, the patient was able to do therapy today. He did not have any problem regarding his gait. Based on this assessment, the patient has been cleared to go home as per that. ASSESSMENT: Adjustment disorder with mixed mood; alcohol abuse; rule out alcohol withdrawal. PLAN: 1. Reduce Librium further to 25 mg p.o. q.12 hours. 2. Continue Haldol 2 mg IM q.6 hours p.r.n. 3. Slowly taper off Librium. 4. Recommend total abstinence from alcohol. 5. Supportive therapy. 6. Discussed with nursing staff. 7. Based on this assessment, the patient has capacity to make decision regarding discharge at this time. Dictated by Monica Parker PA-C Paulina Gaston MD QTV/MODL /[id number]
--- NOTE | 2018-09-18 19:25 | NUR ---
Patient received asleep in bed. Arousable to tactile stimuli. No signs of pain , discomfort or respiratory distress. Fall precautions implemented. Call light within reach.
[2018-09-19] VITALS (7 sets, daily range): BP systolic 118–136; BP diastolic 74–93
--- NOTE | 2018-09-19 07:00 | NUR ---
BEDSIDE SHIFT REPORT FROM NIGHT RN. PT DENIES NEEDS AT THIS TIME.
[2018-09-19] MEDS: FAMOTIDINE 20 MG TAB PO SCH ×2 (07:54→08:06)
[2018-09-19] MEDS: POTASSIUM CHLORIDE 20 MEQ TAB CR PO SCH (08:06)
[2018-09-19] MEDS: CHLORDIAZEPOXIDE HCL 25 MG CAP PO SCH ×2 (08:06→21:34)
[2018-09-19] MEDS: LABETALOL HCL 100 MG TAB PO SCH ×2 (08:15→21:34)
--- NOTE | 2018-09-19 09:20 | NUR ---
Pt unavailable at this time. Will follow up as able. ALBERTO SCHAFER [facility] [employer] Spiritual Care Department O: [phone] Pager: [phone] ([phone] number calling from)
--- NOTE | 2018-09-19 12:56 | NUR ---
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 Able to move out of bed to chair with assistance. No Pressure Ulcers Identified. Addendum: 09/19/18 at 1258 by Chavez Hernandez RN Amended: Links added.
--- NOTE | 2018-09-19 16:10 | NUR ---
SIGNED CHOICE LETTER FOR [facility] , FAXED CLINICALS AND REFERRAL FORM TO [place] AT [phone], PHONE IS [phone] [address] IS [phone], [facility] [place]. ALERTED OF REFERRAL.
[2018-09-20] VITALS (8 sets, daily range): BP systolic 96–166; BP diastolic 58–96
--- NOTE | 2018-09-20 07:02 | NUR ---
Received resting in bed, side rails upx2, call light within reach, bed alarm on. AAOX3 to time, person, place. Respirations even and unlabored. Denies pain. Instructed patient to use call light for assistance. Voiced understanding.
[2018-09-20] MEDS: LABETALOL HCL 100 MG TAB PO SCH ×2 (08:29→21:41)
[2018-09-20] MEDS: FAMOTIDINE 20 MG TAB PO SCH ×2 (08:29→16:57)
[2018-09-20] MEDS: CHLORDIAZEPOXIDE HCL 25 MG CAP PO SCH ×2 (08:29→21:00)
--- NOTE | 2018-09-20 08:30 | NUR ---
Dr. Guzman S aware of T100.3. NO new orders
[2018-09-20] MEDS: POTASSIUM CHLORIDE 20 MEQ TAB CR PO SCH (08:32)
[2018-09-20] MEDS: ACETAMINOPHEN 325 MG TAB PO PRN (08:32)
--- NOTE | 2018-09-20 14:32 | NUR ---
SPOKE WITH [facility], THEY STATE THEY ARE NOT IN NETWORK BUT THEIR SISTER FACILITY [facility] IS IN NETWORK AND THEY WILL FORWARD TO THEM. SPOKE WITH PT AND LET HIM KNOW. THIS FACILITY IS [address] FROM HIS APARTMENT. THEY ALSO WILL BE ABLE TO PROVIDE HIM WITH TRANSPORTATION HOME WHEN HE IS READY.
--- NOTE | 2018-09-20 15:35 | NUR ---
Redness noted to right elbow, warm to touch. Denies pain upon palpation.0.3x0.3 open area noted on elbow Paged who is instrumentation tech for
--- NOTE | 2018-09-20 15:49 | NUR ---
aware of assessment. See orders
[2018-09-20] MEDS: CEPHALEXIN 500 MG CAP PO SCH (16:57)
--- NOTE | 2018-09-20 17:17 | NUR ---
Nutrition Screen Note RD Recommendation for Physician: -Continue current diet as ordered -Rec thiamine and folic acid for hx of alcohol abuse Plan of Care: RD following, monitoring for tolerance and adequacy Nutrition reason for involvement: LOS Primary Diagnose(s): 1. Adjustment disorder with mixed mood. 2. Alcohol abuse. PMH: hypertension and alcohol abuse Ht: 66in Wt: 125.38lb BMI: 20.2kg/m2 IBW: 142lb RD Assessment: (09/20) Chart reviewed. Labs and meds reviewed. 62yo M, who was admitted to the hospital for ataxia and for suspected ethanol withdrawal, hypokalemia, hypomagnesemia. Last BMP showed normal Mg and K. Visited pt in the room. Pt reported good appetite. No GI complains noted. Pt denied any chewing or swallowing difficulty. No significant weight loss PLACEMENT DIRECTOR reported. Will continue to monitor and follow. Current Diet: ADA diet Malnutrition Evaluation (09/20) The patient does not meet criteria for a specified degree of malnutrition at this time. Will re-evaluate at follow-up as appropriate. Diet Education Needs Assessment: Diet education not indicated. Nutrition Care Level: low Signed: Jadyn Wills, MS, RD, LD
--- NOTE | 2018-09-20 19:00 | NUR ---
Report given to oncoming nurse. Resting in bed. No s/s of acute distress noted.
[2018-09-21] VITALS (8 sets, daily range): BP systolic 105–132; BP diastolic 61–91
[2018-09-21] MEDS: CEPHALEXIN 500 MG CAP PO SCH ×3 (00:45→11:34)
[2018-09-21] MEDS: FAMOTIDINE 20 MG TAB PO SCH ×2 (07:30→17:03)
[2018-09-21] MEDS: LABETALOL HCL 100 MG TAB PO SCH ×2 (09:42→21:00)
[2018-09-21] MEDS: POTASSIUM CHLORIDE 20 MEQ TAB CR PO SCH (09:42)
[2018-09-21] MEDS: CHLORDIAZEPOXIDE HCL 25 MG CAP PO SCH ×2 (09:42→21:00)
--- NOTE | 2018-09-21 14:27 | NUR ---
Patient alert, confused at times, OOB and has been sitting on recliner for the most part of the day, states feels well, denies any pain, right elbow still swollen and red, continues on Keflex abx, call for assistance when needed, assisted to b/r and ambulates with slow ataxic gait with R/W and will monitor, safety maintained.
[2018-09-21] MEDS: ACETAMINOPHEN 325 MG TAB PO PRN (15:00)
--- NOTE | 2018-09-21 16:42 | NUR ---
Patient running low grade fevers x2, medicated with APAP and Dr. Fernandez notified, states will order IV abx as he is doing rounds at this time, also notified of cellulitis to right elbow.
--- NOTE | 2018-09-21 17:34 | Progress Note ---
DATE: 09/21/2018 Internal Medicine Progress Note SUBJECTIVE: The patient is doing good except for fever today. OBJECTIVE: VITAL SIGNS: Blood pressure 105/61, temperature 100.2, heart rate 75 per minute, respiratory rate 18 per minute, and oxygen saturation 97%. HEART: Regular rhythm. No murmur or added sounds. LUNGS: Clear bilaterally. EXTREMITIES: He has redness on the right elbow. LABORATORY DATA: BMP; sodium 143, potassium 3.7, chloride 116, CO2 21, BUN 5, creatinine 0.71, and glucose 83. CBC; white blood count 6.37, hemoglobin 11.2, hematocrit 33.8, platelet count 168,000. PT 12.1, INR 0.85, PTT 30.9. AST 33, ALT 17, total bilirubin 0.7, alkaline phosphatase 69. FINAL IMPRESSION: 1. Cellulitis on the right elbow. 2. Alcohol abuse. 3. Alcoholic encephalopathy. 4. Fever, rule out sepsis. PLAN OF TREATMENT: We are going to start vancomycin 1 g IV twice a day, Ancef 1 g IV q.8 hours, labetalol 100 mg twice a day, potassium chloride 20 mEq daily, labetalol 20 mg IV q.4 hours as needed for hypertension, Tylenol 650 mg q.6 hours as needed for pain or fever, Haldol 2 mg IV q.6 hours as needed, Librium 25 mg twice a day, Pepcid 20 mg twice a day, and Zofran 4 mg IV q.4 hours as needed. MD SON Schneider/JHONY /[id number]
--- NOTE | 2018-09-21 19:28 | NUR ---
Patient received sitting in recliner bed. AAO x 3 . Patient had no c/o pain. Respirations even and non-labored. Fall precautions implemented. Patient instructed to call for assistance when needed. Call light within reach.
[2018-09-21] MEDS ORDERED: SODIUM CHLORIDE 0.9% 250ML 250 ML ONE (20:51)
--- NOTE | 2018-09-21 21:30 | NUR ---
Urine sample sent to lab.
[2018-09-21 21:38] LABS: BILIRUBIN,URINE NEGATIVE (NEGATIVE); CLARITY,URINE CLEAR (CLEAR); COLOR,URINE YELLOW (YELLOW); KETONES,URINE NEGATIVE (NEGATIVE); LEUKOCYTE ESTERASE ,URINE NEGATIVE (NEGATIVE); NITRITE,URINE NEGATIVE (NEGATIVE); PROTEIN,URINE DIPSTICK NEGATIVE (NEGATIVE); URINE UROBILINOGEN 0.2 mg/dL (0.2 - 1)
[2018-09-21 21:41] LABS: WBC,URINE (MAN) 0-5 /HPF (0-5)
[2018-09-21 21:42] LABS: MUCUS,URINE MODERATE (RARE)
[2018-09-21] MEDS: CEFAZOLIN SOD 1 GM/NS 50ML 50 ML IV SCH (22:00)
[2018-09-22] VITALS (9 sets, daily range): BP systolic 97–125; BP diastolic 67–81
[2018-09-22] MEDS: CEFAZOLIN SOD 1 GM/NS 50ML 50 ML IV SCH ×3 (06:24→22:20)
--- NOTE | 2018-09-22 07:16 | NUR ---
Shift report given to oncoming nurse.
--- NOTE | 2018-09-22 08:15 | NUR ---
Patient alert and responsive, VSS, afebrile this morning, no N/V, right elbow with abscess, cellulitis and red, noted draining this morning and DPD applied to area.
[2018-09-22] MEDS: FAMOTIDINE 20 MG TAB PO SCH ×2 (09:23→17:00)
[2018-09-22] MEDS: POTASSIUM CHLORIDE 20 MEQ TAB CR PO SCH (09:23)
[2018-09-22] MEDS: LABETALOL HCL 100 MG TAB PO SCH ×2 (09:23→21:00)
[2018-09-22] MEDS: CHLORDIAZEPOXIDE HCL 25 MG CAP PO SCH ×2 (09:23→22:25)
--- NOTE | 2018-09-22 14:49 | Diagnostic Imaging Report ---
Exam: Right elbow 3 views History: Pain, cellulitis Comparison: None. Findings: No fracture or malalignment. Joint spaces preserved. Soft tissue swelling of the posterior elbow. Focus of calcification overlying the olecranon bursa. Impression: No acute osseous abnormality Signed by: Dr. Virgil Yeung M.D. on 09/22/2018 2:46 PM
--- NOTE | 2018-09-22 15:38 | Progress Note ---
DATE: 09/22/2018 Internal Medicine Progress Note SUBJECTIVE: The patient is doing better. No significant complaint. PHYSICAL EXAMINATION: VITAL SIGNS: Blood pressure 125/81, temperature 97.8 degrees Fahrenheit, heart rate 75 per minute, respiratory rate 16 per minute, oxygen saturation 98%. HEART: Showed regular rhythm. No murmur or added sound. LUNGS: Clear bilaterally. ABDOMEN: Soft. EXTREMITIES: Showed redness of the right elbow core with dressings. HEART: Showed regular rhythm. Normal S1, S2 sound. LUNGS: Clear bilaterally. ABDOMEN: Soft. LABORATORY DATA: On BMP; sodium 143, potassium 3.7, chloride 116, CO2 21, BUN 5, creatinine 0.71, glucose 83. On his CBC, white count 6.37, hemoglobin 11.2, hematocrit 33.8, platelet count of 188,000. PT 12.1, INR 0.85, PTT 30.9. AST 33, ALT 17, total bilirubin 0.7, and alkaline phosphatase 69. IMPRESSION: 1. Cellulitis of the right elbow. 2. Alcohol abuse. 3. Alcoholic encephalopathy which is resolving. 4. Sepsis. 5. Hypertension. PLAN OF TREATMENT: Continue Ancef 1 g IV q.8 hours, labetalol 100 mg twice a day, potassium chloride 20 mEq daily, labetalol 20 mg IV q.4 hours as needed for hypertension, Zofran 4 mg IV q.4 hours as needed, Tylenol 650 mg q.6 hours as needed, Haldol 2 mg q.6 hours as needed for agitation, hydralazine 10 mg IV q.4 hours as needed for hypertension, Librium 25 mg twice a day, and Pepcid 20 mg twice a day. I am going to also order an x-ray of the right elbow to rule out osteomyelitis. MD SON Schneider/JHONY /[id number]
--- NOTE | 2018-09-22 17:00 | NUR ---
Patient alert and responsive, remained afebrile all day today, VSS and no c/o pains, OOB and sitting on recliner for most of the day, able to call and make needs known, call light within reach, had a BM today, no dyspnea, completed IV abx, will monitor.
--- NOTE | 2018-09-22 19:30 | NUR ---
Patient received lying in bed. AAO x 3. No complaints of pain. Respirations even and non-labored. Dressing to right elbow CDI. Fall precautions implemented. Patient instructed to call for assistance when needed. Call light within reach.
[2018-09-23] VITALS (8 sets, daily range): BP systolic 94–140; BP diastolic 66–88
[2018-09-23] MEDS: CEFAZOLIN SOD 1 GM/NS 50ML 50 ML IV SCH ×3 (06:05→21:43)
[2018-09-23] MEDS: CHLORDIAZEPOXIDE HCL 25 MG CAP PO SCH (08:36)
[2018-09-23] MEDS: LABETALOL HCL 100 MG TAB PO SCH ×2 (08:36→21:43)
[2018-09-23] MEDS: FAMOTIDINE 20 MG TAB PO SCH ×2 (08:36→17:02)
[2018-09-23 09:36] LABS: BASOPHILS # (AUTO) 0.1 (0.0-0.1); EOSINOPHILS # (AUTO) 0.3 (0.0-0.4); EOSINOPHILS % 3.3 % (0.0-6.0); HEMOGLOBIN 11.7 g/dL (14.0-18.0); LYMPHOCYTES # (AUTO) 0.8 (1.0-3.2); LYMPHOCYTES % 10.3 % (18.0-39.1); MEAN CORPUSCULAR HEMOGLOBIN 34.2 pg (28-32); MEAN CORPUSCULAR HGB CONC 33.4 g/dL (31-35); MEAN CORPUSCULAR VOLUME 102.3 fL (81-99); MONOCYTES # (AUTO) 0.8 (0.2-0.8); MONOCYTES % 9.9 % (4.4-11.3); NEUTROPHILS # (AUTO) 6.2 (2.1-6.9); NEUTROPHILS % 75.1 % (38.7-80.0); PLATELET COUNT 269 x10e3/uL (140-360); RED BLOOD COUNT 3.42 x10e6/uL (4.3-5.7); RED CELL DISTRIBUTION WIDTH 13.4 % (11.7-14.4)
[2018-09-23 10:01] LABS: ANION GAP 11.6 mmol/L (8-16); BLOOD UREA NITROGEN 13 mg/dL (7-26); BUN/CREATININE RATIO 15 (6-25); CALCIUM 9.6 mg/dL (8.4-10.2); CARBON DIOXIDE 24 mmol/L (22-29); CHLORIDE 107 mmol/L (98-107); CREATININE, SERUM 0.86 mg/dL (0.72-1.25); EST GLOMERULAR FILTRATION RATE > 60 ML/MIN (60-); GLUCOSE 157 mg/dL (74-118); POTASSIUM 3.6 mmol/L (3.5-5.1); SODIUM 139 mmol/L (136-145)
[2018-09-23] MEDS: POTASSIUM CHLORIDE 20 MEQ TAB CR PO SCH (10:08)
--- NOTE | 2018-09-23 10:32 | NUR ---
Spoke with Tonie with admissions at [facility] for update on referral. She stated that pt has been accepted clinically. They are waiting on financials. She will call CM once she has an update.
--- NOTE | 2018-09-23 11:25 | NUR ---
Received call from Ju at [facility]. She gave MOT but stated that they are still waiting for final authorization from insurance. [address] [place] [address] Warren to attend Admin: Paty Vaughn She will call CM once they have received final auth to send pt.
--- NOTE | 2018-09-23 13:10 | NUR ---
paged for orders to discharge patient, at this time placement has been obtained.
--- NOTE | 2018-09-23 16:05 | NUR ---
Called and spoke to Kim at [facility] She stated that they are still waiting on auth. She stated that they would most likely be approved for admit tomorrow. CM will follow up in AM.
--- NOTE | 2018-09-23 19:15 | NUR ---
bedside rounds done with oncoming nurse. patient ambulating to bathroom with TRICK RODEO RIDER assistance. bed in low and locked position.
--- NOTE | 2018-09-23 19:24 | Progress Note ---
DATE: 09/23/2018 Psychiatric Progress Note SUBJECTIVE: The patient evaluated and events noted. The patient is sitting in a chair in his room. He is calm, cooperative. He is pleasant. He is not confused. He stated that he is doing pretty well. He denies any problem over the weekend and state that he did therapy and ambulated around the unit. He denies having trouble with ambulation today. He denies having problem with sleep or appetite. He denies any hallucination. He denies any depression or anxiety. Currently, he is taking his medication. He denies any side effects on evaluating the medication. He is not getting any p.r.n. medication. ASSESSMENT: 1. Adjustment disorder with mixed mood. 2. Alcohol abuse. PLAN: 1. DC Librium 25 mg p.o. q.12h. 2. Continue with Haldol 2 mg IM q.6 hours p.r.n. 3. Monitor for his mood and agitation. 4. Supportive therapy. Dictated by Monica Parker PA-C Paulina Gaston MD QTV/MODL /[id number]
--- NOTE | 2018-09-23 19:30 | NUR ---
REPORT RECEIVED FROM OFFGOING NURSE GERALD SAAB,PT PENDING DISCHARGE DUE TO PENDING INSURANCE AUTHORIZATION.PT RESTING IN BED WITH NO S/S OF DISTRESS.RESPIRATIONS EVEN/NON LABORED.BED IN LOWEST/LOCKED POSITION.BED ALARM ACTIVATED.WILL CONTINUE TO MONITOR.
[2018-09-24 00:16] VITALS: BP 141/89
[2018-09-24] MEDS: CEFAZOLIN SOD 1 GM/NS 50ML 50 ML IV SCH ×2 (05:48→14:00)
[2018-09-24 05:51] VITALS: BP 141/87
--- NOTE | 2018-09-24 07:04 | NUR ---
REPORT GIVEN TO ONCOMING NURSE.WALKING ROUNDS MADE.PT RESTING IN BED WITH NO S/S OF DISTRESS.
[2018-09-24 07:45] VITALS: BP 119/71
[2018-09-24] MEDS: FAMOTIDINE 20 MG TAB PO SCH ×2 (09:06→17:17)
[2018-09-24] MEDS: POTASSIUM CHLORIDE 20 MEQ TAB CR PO SCH (09:06)
[2018-09-24] MEDS: LABETALOL HCL 100 MG TAB PO SCH (09:07)
[2018-09-24 12:34] VITALS: BP 110/74
--- NOTE | 2018-09-24 12:40 | NUR ---
SPOKE WITH VILMA AT [facility] [phone], LET KNOW WHAT WAS THE PROGRESS ON THIS CASE AND THAT WE HAD NOT GOT AUTH AT THIS POINT, SHE WAS ABLE TO PUSH THROUGH FOR [address], [place] [address] AUTH NUMBER [id number] FOR 24 DAYS. CALLED FACILITY AND GAVE INFORMATION [phone], GOT ROOM [address]A UNDER CARE OF DR JEAN-BAPTISTE FOR DISCHARGE TODAY. FILLED OUT RTF AND PASRR AND PUT COPIES IN CHART AND ONE FOR PACKET TO GO WITH PATIENT TO FACILITY.
[2018-09-24 16:00] VITALS: BP 142/81
--- NOTE | 2018-09-24 17:50 | NUR ---
pt discharged to [facility], via ambulance service.
== END 2018-09-24 18:04 | DRG 896 ==
LOC: ER 14:25 → ERHOLD 20:12 → MED/SURG2 21:30 → OBSVTOIN 09-14 09:13
DX: F10.231 Alcohol dependence with withdrawal delirium (principal); G92 Toxic encephalopathy; A41.9 Sepsis, unspecified organism; L03.115 Cellulitis of right lower limb; I10 Essential (primary) hypertension; Y90.9 Presence of alcohol in blood, level not specified; E87.6 Hypokalemia; E83.42 Hypomagnesemia; T51.0X1A Toxic effect of ethanol, accidental (unintentional), initial encounter; F43.29 Adjustment disorder with other symptoms
CPT/HCPCS: 36415; 70450; 71045; 71260; 80048; 80053; 81001; 82550; 82553; 83605; 83735; 83880; 84100; 84443; 84484; 85025; 85379; 85610; 85730; 87040; 87086; 93005; 97139; 99284; G0378; J0360; J0690; J2060; J3411; J3475; J7030; J7050; Q9967